=== PATIENT | male | born 1995 | race Hispanic/Latino ===

== ENCOUNTER 2021-05-01 11:20 | Inpatient (IN) | payer OTHER, SELFPAY ==
[2021-05-01 13:30] LABS: Absolute Lymphocytes (CBC) 0.4 K/uL (0.7-4.9); Basophils % 0.2 % (0-1.3); Hematocrit 44.8 % (39.6-49.0); Lymphocytes % 3.3 % (15.3-44.8); MPV 7.6 fL (7.6-11.3); RBC Red Blood Cell Count 5.23 M/uL (4.33-5.43)
[2021-05-01] MEDS ORDERED: dexAMETHasone 10 MG/ML VIAL ONE (14:18)
[2021-05-01] MEDS ORDERED: ALBUTEROL 2.5 MG/3 ML NEB SOL ONE (14:18)
[2021-05-01] MEDS ORDERED: MAGNESIUM SULFATE 1 gm IVPB 1 GM/100 ML BAG IV ONE (14:19)
--- NOTE | 2021-05-01 14:30 | RAD REPORT ---
EXAM DESCRIPTION: CT - Chest For Pe Angio - 05/01/2021 2:05 pm CLINICAL HISTORY: sob, elevated d-dimer COMPARISON: None. TECHNIQUE: Dynamically enhanced axial 3 mm thick images of the chest were obtained during administra tion of <100> mL Isovue 370 IV contrast. Coronal and oblique reconstruction images were generated and reviewed. Exam utilizes a protocol for optimal evaluation of pulmonary arterial tree. Maximum intensity projections 3D imaging was utilized All CT scans are performed using dose optimization technique as appropriate and may include automated exposure control or mA/KV adjustment according to patient size. FINDINGS: A pulmonary embolus is not seen. A thoracic aortic aneurysm is not noted. A pleural effusion is not seen. A pericardial effusion is not seen. Moderate ground-glass opacities within the left lung. Mild to moderate bilateral lower lobe consolida tions IMPRESSION: Negative for a pulmonary embolism. Moderate ground-glass opacities within the left lung. Mild to moderate bilateral lower lobe consolida tions . This could be seen with Covid or bacterial pneumonia
[2021-05-01 14:44] LABS: Platelet Estimate ADEQ; White Blood Cell Scan OK (OK)
[2021-05-01 14:45] LABS: Blood Morphology Comment NOT SEEN (NOT SEEN)
--- NOTE | 2021-05-01 15:16 | EDPHYS ---
Physician Documentation [facility] Name: Cordell Ware Age: 26 yrs Sex: Male : 1995 Arrival Date: 05/01/2021 Time: 11:23 Bed 24 Private MD: ED Physician Kolby Manzanares HPI: 05/01 12:14 This 26 yrs old Male presents to ER via Wheelchair with complaints of Covid jmm Complications. 12:14 Onset: The symptoms/episode began/occurred gradually, 10 day(s) ago. Modifying factors: jmm The symptoms are alleviated by nothing. the symptoms are aggravated by nothing. Associated signs and symptoms: Pertinent positives: cough. The patient has not experienced similar symptoms in the past. Patient mainly complaining non stop cough, diarrhea. Taking unknown prescribed medications. . Historical: - Allergies: 11:58 No Known Allergies; hb - Home Meds: 11:58 None [Active]; hb - PMHx: 11:58 None; hb - PSHx: 11:58 None; hb - Immunization history:: Adult Immunizations up to date. - Social history:: Smoking status: Patient denies any tobacco usage or history of. ROS: 12:14 Cardiovascular: Negative for chest pain, palpitations, and edema. jmm 12:14 Constitutional: Positive for fatigue. 12:14 Respiratory: Positive for cough. 12:14 All other systems are negative. Exam: 12:14 Constitutional: This is a well developed, well nourished patient who is awake, alert, jmm and in no acute distress. Head/Face: atraumatic. Eyes: EOMI, no conjunctival erythema appreciated ENT: Moist Mucus Membranes Neck: Trachea midline, Supple Chest/axilla: Normal chest wall appearance and motion. Cardiovascular: Regular rate and rhythm. No edema appreciated 12:14 Skin: General appearance color normal MS/ Extremity: Moves all extremities, no obvious deformities appreciated, no edema noted to the lower extremities Neuro: Awake and alert, normal gait Psych: Behavior is normal, Mood is normal, Patient is cooperative and pleasant 12:14 Respiratory: the patient does not display signs of respiratory distress, Respirations: normal, Breath sounds: decreased breath sounds, that are mild, are heard in the right posterior lower lobe. Vital Signs: 11:56 BP 116 / 68; Pulse 111; Resp 20; Temp 98.3(O); Pulse Ox 90% on R/A; Pain 6/10; hb 14:30 Pulse 91; Resp 20; Pulse Ox 96% ; kg 15:00 BP 112 / 73; Resp 22; Pulse Ox 93% on 3 lpm NC; kg 15:29 BP 116 / 76; Pulse 70; Resp 20; Pulse Ox 95% on 3 lpm NC; kg 16:00 BP 124 / 73; Pulse 81; Resp 20; Pulse Ox 96% on 3 lpm NC; kg 16:30 BP 124 / 75; Pulse 82; Resp 20; Pulse Ox 99% on 3 lpm NC; kg 17:00 BP 117 / 73; Pulse 90; Resp 20; Pulse Ox 98% on 3 lpm NC; kg 17:30 BP 119 / 72; Pulse 83; Resp 20; Pulse Ox 97% on 3 lpm NC; kg 18:00 BP 113 / 68; Pulse 73; Resp 20; Pulse Ox 97% on 3 lpm NC; kg MDM: 12:04 Patient medically screened. [facility] 15:13 Data reviewed: vital signs, nurses notes. Counseling: I had a detailed discussion with rm the patient and/or guardian regarding: the historical points, exam findings, and any diagnostic results supporting the discharge/admit diagnosis, radiology results, the need for further work-up and treatment in the hospital. ED course: I discussed the patient with Dr. Iraheta whom accepted the patient for admission. . 05/01 12:03 Order name: CBC with Diff; Complete Time: 14:57 [facility] 05/01 12:03 Order name: CMP; Complete Time: 06:09 [facility] 05/01 12:03 Order name: D-Dimer; Complete Time: 14:03 [facility] 05/01 13:35 Order name: CBC Smear Scan; Complete Time: 14:57 [facility] 05/01 14:48 Order name: CREATININE WHOLE BLOOD; Complete Time: 14:57 [facility] 05/01 15:50 Order name: C-Reactive Protein [facility] 05/01 15:50 Order name: Ferritin [facility] 05/01 19:08 Order name: C-Reactive Protein; Complete Time: 06:09 [facility] 05/01 19:08 Order name: Ferritin; Complete Time: 06:09 [facility] 05/02 05:43 Order name: CBC with Automated Diff; Complete Time: 06:09 [facility] 05/02 05:58 Order name: Basic Metabolic Panel; Complete Time: 06:09 [facility] 05/02 05:58 Order name: C-Reactive Protein; Complete Time: 06:09 [facility] 05/02 05:58 Order name: Magnesium; Complete Time: 06:09 [facility] 05/02 05:58 Order name: Ferritin; Complete Time: 06:09 [facility] 05/01 12:03 Order name: Saline Lock; Complete Time: 13:55 [facility] 05/01 13:39 Order name: CT Chest For PE Angio; Complete Time: 14:35 [facility] 05/01 15:47 Order name: CONS Physician Consult [facility] 05/02 10:34 Order name: Phosphorus; Complete Time: 06:09 [facility] 05/03 05:31 Order name: Basic Metabolic Panel; Complete Time: 06:09 [facility] 05/03 05:31 Order name: C-Reactive Protein; Complete Time: 06:09 [facility] 05/03 05:31 Order name: Magnesium; Complete Time: 06:09 [facility] 05/03 05:31 Order name: Ferritin; Complete Time: 06:09 EDMS Administered Medications: 14:15 Drug: Decadron - Dexamethasone 10 mg Route: IVP; Site: right antecubital; ld1 18:20 Follow up: Response: No adverse reaction kg 14:15 Drug: Albuterol 2.5 mg Route: Inhalation; ld1 14:24 Drug: Magnesium Sulfate 1 grams Route: IVPB; Infused Over: 1 hrs; Site: right ld1 antecubital; 15:00 Follow up: IV Status: Completed infusion; IV Intake: 100ml kg 18:17 Follow up: Response: No adverse reaction kg Disposition: 05/04 06:59 Co-signature as Attending Physician, Kolby Manzanares MD I agree with the assessment and surya plan of care. Disposition Summary: 05/01/21 15:15 Hospitalization Ordered Hospitalization Status: Observation jm Provider: Vidal Iraheta Condition: Stable jmm Problem: new jmm Symptoms: are unchanged [facility] Bed/Room Type: Standard [facility] Location: Intensive Care Unit(05/03/21 14:53) ja1 Room Assignment: 6-(05/03/21 14:53) [facility] Diagnosis - Coronavirus infection, unspecified jmm - Acute respiratory distress m Forms: - Medication Reconciliation Form jmm - SBAR form jmm Signatures: Dispatcher [employer] EDKolby Lemon MD MD cha Mickail, Joel, PA PA [facility] Miesha Paula, RN RN Neelam Iyer RN RN Modesto Correia RN RN ja1 Vicenta Crockett RN RN ld1 Radha Espinosa RN kg Corrections: (The following items were deleted from the chart) 05/01 11:58 11:58 PMHx: Unable to Obtain; hb 18: 15:15 Telemetry/MedSurg (observation) [facility] : 15:15 [facility] 05/03 14:53 05/01 18:22 [place] [id number] 05/03 14:53 05/01 18:22 [place] [id number]
--- NOTE | 2021-05-01 15:16 | ER ---
Nurse's Notes [facility] Name: Cordell Ware Age: 26 yrs Sex: Male : 1995 Arrival Date: 05/01/2021 Time: 11:23 Bed 24 Private MD: Diagnosis: Coronavirus infection, unspecified;Acute respiratory distress Presentation: 05/01 11:56 Chief complaint: Worsening SOB, cough, congestion, nausea, fever, and chills x 10 days. hb COVID +. Coronavirus screen: Client presents with at least one sign or symptom that may indicate coronavirus-19. Standard/surgical mask placed on the client. Provider contacted for isolation considerations. Ebola Screen: No symptoms or risks identified at this time. Risk Assessment: Do you want to hurt yourself or someone else? Patient reports no desire to harm self or others. Onset of symptoms was April 21, 2021. 11:56 Method Of Arrival: Wheelchair hb 11:56 Acuity: TAL 2 hb 13:00 Initial Sepsis Screen: Does the patient meet any 2 criteria? No. Patient's initial kg sepsis screen is negative. Does the patient have a suspected source of infection? No. Patient's initial sepsis screen is negative. Triage Assessment: 13:00 General: Appears in no apparent distress. Behavior is calm, cooperative, appropriate kg for age, quiet. Pain: Denies pain. Historical: - Allergies: 11:58 No Known Allergies; hb - Home Meds: 11:58 None [Active]; hb - PMHx: 11:58 None; hb - PSHx: 11:58 None; hb - Immunization history:: Adult Immunizations up to date. - Social history:: Smoking status: Patient denies any tobacco usage or history of. Screenin:00 Abuse screen: Denies threats or abuse. Denies injuries from another. Nutritional kg screening: No deficits noted. Tuberculosis screening: No symptoms or risk factors identified. Fall Risk None identified. No fall in past 12 months (0 pts). No secondary diagnosis (0 pts). IV access (20 points). Ambulatory Aid- None/Bed Rest/Nurse Assist (0 pts). Gait- Normal/Bed Rest/Wheelchair (0 pts) Mental Status- Oriented to own ability (0 pts). Total Curran Fall Scale indicates No Risk (0-24 pts). Assessment: 14:30 General: Appears uncomfortable, Behavior is appropriate for age, anxious, quiet. Pain: kg Denies pain. Neuro: No deficits noted. Level of Consciousness is awake, alert, obeys commands, Oriented to person, place, time, situation, Appropriate for age. Cardiovascular: No deficits noted. Heart tones S1 S2. Respiratory: No deficits noted. Reports shortness of breath at rest on exertion cough that is productive, since 10 days ago Respiratory: Breath sounds are diminished bilaterally. GI: No deficits noted. : No deficits noted. EENT: No deficits noted. Derm: No deficits noted. Musculoskeletal: No deficits noted. 17:25 Reassessment: called and gave her an update on pt status. Will call her back when kg patient has room. [place]. [phone]. Vital Signs: 11:56 BP 116 / 68; Pulse 111; Resp 20; Temp 98.3(O); Pulse Ox 90% on R/A; Pain 6/10; hb 14:30 Pulse 91; Resp 20; Pulse Ox 96% ; kg 15:00 BP 112 / 73; Resp 22; Pulse Ox 93% on 3 lpm NC; kg 15:29 BP 116 / 76; Pulse 70; Resp 20; Pulse Ox 95% on 3 lpm NC; kg 16:00 BP 124 / 73; Pulse 81; Resp 20; Pulse Ox 96% on 3 lpm NC; kg 16:30 BP 124 / 75; Pulse 82; Resp 20; Pulse Ox 99% on 3 lpm NC; kg 17:00 BP 117 / 73; Pulse 90; Resp 20; Pulse Ox 98% on 3 lpm NC; kg 17:30 BP 119 / 72; Pulse 83; Resp 20; Pulse Ox 97% on 3 lpm NC; kg 18:00 BP 113 / 68; Pulse 73; Resp 20; Pulse Ox 97% on 3 lpm NC; kg ED Course: 11:23 Patient arrived in ED. rg4 11:58 Triage completed. hb 11:58 Arm band placed on. hb 11:59 Cooper Salter PA is PHCP. jmm 11:59 Kolby Manzanares MD is Attending Physician. jmm 12:30 Radha Espinosa, SUPA is Primary Nurse. kg 12:40 Inserted saline lock: 20 gauge in right antecubital area, using aseptic technique. kg 13:01 Patient has correct armband on for positive identification. Bed in low position. Call kg light in reach. Side rails up X2. 14:05 CT Chest For PE Angio In Process Unspecified. EDMS 15:15 Vidal Iraheta MD is Hospitalizing Provider. [facility] Administered Medications: 14:15 Drug: Decadron - Dexamethasone 10 mg Route: IVP; Site: right antecubital; ld1 18:20 Follow up: Response: No adverse reaction kg 14:15 Drug: Albuterol 2.5 mg Route: Inhalation; ld1 14:24 Drug: Magnesium Sulfate 1 grams Route: IVPB; Infused Over: 1 hrs; Site: right ld1 antecubital; 15:00 Follow up: IV Status: Completed infusion; IV Intake: 100ml kg 18:17 Follow up: Response: No adverse reaction kg Intake: 15:00 IV: 100ml; Total: 100ml. kg Outcome: 15:15 Decision to Hospitalize by Provider. [facility] 05/03 16:32 Patient left the ED. eb Signatures: Dispatcher [employer] EDMS Cooper Salter PA PA [facility] Neelam Iyer RN RN Dania Curry rg4 Irene Sweeney Vicenta Crockett, SUPA RN ld1 Radha Espinosa RN RN kg Corrections: (The following items were deleted from the chart) 07 11:58 11:58 PMHx: Unable to Obtain; hb hb 17:32 11:56 Chief complaint: Worsening SOB, cough, congestion, nausea, fever, and shills x 10 hb days. COVID + hb 18:51 16:00 BP 124 / 73; Pulse 81bpm; Resp 20bpm; Pulse Ox 96%; kg kg 18:51 16:30 BP 124 / 75; Pulse 82bpm; Resp 20bpm; Pulse Ox 99%; kg kg 18:51 17:00 BP 117 / 73; Pulse 90bpm; Resp 20bpm; Pulse Ox 98% RA; kg kg 18:51 17:30 BP 119 / 72; Pulse 83bpm; Resp 20bpm; Pulse Ox 97% RA; kg kg 18:51 18:00 BP 113 / 68; Pulse 73bpm; Resp 20bpm; Pulse Ox 97% RA; kg kg
--- NOTE | 2021-05-01 15:48 | P.HP ---
Certification for Inpatient Patient admitted to: Observation With expected LOS: <2 Midnights Practitioner: I am a practitioner with admitting privileges, knowledge of patient current condition, hospital course, and medical plan of care. Services: Services provided to patient in accordance with Admission requirements found in Title 42 Section 412.3 of the Code of Federal Regulations Patient History Date of Service: 05/01/21 Reason for admission: hypoxia, COVID-19 pneumonia History of Present Illness: 26-year-old male, no significant past medical history presents to the ER due to progressively worsening shortness of breath, dyspnea on exertion, and bad coughing episodes. Denies nausea/vomiting, reports of mild diarrhea. No abdominal pain, no chest pain or pressure. No recent sick contacts that he is aware of. In the ER he was found to be Covid positive, CT consistent with Covid pneumonia. Yes I five second recording 3 L nasal cannula to maintain SPO2 greater than 90%. Elevated D dimer, CTA negative for PE. Allergies No Known Allergies Allergy (Unverified 05/01/21 19:07) Home Medications: NK [No Home Meds] 05/01/21 - Past Medical/Surgical History Past Medical History: Patient denies medical history Past Surgical History: Patient denies surgical history - Family History Family History: Reviewed- Non-Contributory (denies family history) - Social History Smoking Status: Never smoker Alcohol use: No Place of Residence: Home Review of Systems 10-point ROS is otherwise unremarkable Physical Examination - Studies Laboratory Data (last 24 hrs) 05/01/21 12:52: WBC 11.80 H, Hgb 15.3, Hct 44.8, Plt Count 356 Assessment and Plan - Advance Directives Does patient have a Living Will: No Does patient have a Durable POA for Healthcare: No Physician Review Additional Text: Physical exam vitals reviewed. General: NAD, AAOx3 HEENT: normal conjunctiva, sclera anicteric CV: regular rate and rhythm, no murmur Pulmonary: bilateral crackles, diminished bases bilaterally. Non-labored respirations on 3 L nasal cannula. Abd: soft, nontender, nondistended Integumentary: no rash, no lesions Neuro: normal affect, normal speech, str 5/5 all extremities MSK: no joint tenderness/swelling Problem list Acute hypoxemic respiratory failure secondary to COVID-19 pneumonia Elevated D dimer Cough Treatment per Covid protocol, steroids, vitamin supplementation, cough medication Pulmonology consulted Wean oxygen as tolerated lovenox for DVT prophylaxis pt does not appear toxic seems to get more significantly short of breath due to coughing episodes Dispo: anticipate dc home tomorrow, will likely need home O2 Time Spent Managing Pts Care (In Minutes): 65
[2021-05-01 19:07] LABS: Albumin 3.3 g/dL (3.4-5.0); Bilirubin Total 0.7 mg/dL (0.2-1.0); C-Reactive Protein 73.3 mg/L (<3.00); Ferritin 1484.2 ng/mL (26-388); Potassium 4.6 mmol/L (3.5-5.1); Protein, Total 8.4 g/dL (6.4-8.2)
[2021-05-01] MEDS: THIAMINE 200 MG/2 ML INJ IVP SCH (22:10)
[2021-05-01] MEDS ORDERED: BENZONATATE 100 MG CAP PO PRN (22:10)
[2021-05-01] MEDS: ASCORBIC ACID 500 MG TABLET PO SCH (22:10)
[2021-05-01] MEDS: FAMOTIDINE 20 MG TAB PO SCH (22:10)
[2021-05-01 22:27] VITALS: BMI 23.7
[2021-05-01] MEDS: METHYLPREDNISOLONE 40 MG INJ IV SCH (22:30)
[2021-05-01] MEDS ORDERED: VITAMIN D 1000 UNIT TAB ONE (23:25)
[2021-05-01] MEDS ORDERED: THIAMINE 200 MG/2 ML INJ ONE (23:25)
[2021-05-01] MEDS ORDERED: ASCORBIC ACID 500 MG TABLET ONE (23:26)
[2021-05-01] MEDS ORDERED: FAMOTIDINE 20 MG TAB ONE (23:26)
[2021-05-01] MEDS ORDERED: ENOXAPARIN 40 MG/0.4 ML SQ ONE (23:26)
[2021-05-01] MEDS ORDERED: METHYLPREDNISOLONE 40 MG INJ ONE (23:26)
[2021-05-02 05:26] LABS: Absolute Lymphocytes (CBC) 0.5 K/uL (0.7-4.9); Basophils % 0.3 % (0-1.3); Hematocrit 42.3 % (39.6-49.0); Lymphocytes % 5.8 % (15.3-44.8); MPV 7.4 fL (7.6-11.3); RBC Red Blood Cell Count 4.96 M/uL (4.33-5.43)
[2021-05-02 05:57] LABS: BUN Blood Urea Nitrogen 32 mg/dL (7-18); Bicarbonate 29 mmol/L (21-32); Ferritin 1262.1 ng/mL (26-388); Glucose Level 212 mg/dL (74-106); Magnesium 2.8 mg/dL (1.8-2.4); Sodium Level 138 mmol/L (136-145)
[2021-05-02] MEDS: METHYLPREDNISOLONE 40 MG INJ IV SCH ×3 (06:30→21:44)
[2021-05-02] MEDS ORDERED: METHYLPREDNISOLONE 40 MG INJ ONE ×2 (06:42→21:33)
[2021-05-02] MEDS: ENOXAPARIN 40 MG/0.4 ML SQ SCH (09:00)
[2021-05-02] MEDS: FAMOTIDINE 20 MG TAB PO SCH ×2 (09:00→21:00)
[2021-05-02] MEDS: VITAMIN D 1000 UNIT TAB PO SCH (09:00)
[2021-05-02] MEDS: ASCORBIC ACID 500 MG TABLET PO SCH ×4 (09:00→21:00)
[2021-05-02] MEDS: THIAMINE 200 MG/2 ML INJ IVP SCH ×2 (09:00→21:00)
[2021-05-02] MEDS ORDERED: THIAMINE 200 MG/2 ML INJ ONE ×2 (09:12→21:33)
[2021-05-02] MEDS ORDERED: VITAMIN D 1000 UNIT TAB ONE (09:13)
[2021-05-02] MEDS ORDERED: ASCORBIC ACID 500 MG TABLET ONE ×3 (09:13→21:33)
[2021-05-02] MEDS ORDERED: FAMOTIDINE 20 MG TAB ONE ×2 (09:13→21:34)
[2021-05-02] MEDS ORDERED: ENOXAPARIN 40 MG/0.4 ML SQ ONE (09:14)
--- NOTE | 2021-05-02 16:03 | P.PN ---
Subjective Date of Service: 05/02/21 Chief Complaint: hypoxia, COVID-19 pneumonia Subjective: Improving (slight improvement, has not gotten out of bed yet, SOB worse when coughing. coughing less frequent) Review of Systems 10-point ROS is otherwise unremarkable Physical Examination - Vital Signs Temperature: 97.7 F Blood Pressure: 114/74 Pulse: 80 Respirations: 20 Pulse Ox (%): 92 - Studies Laboratory Data (last 24 hrs) 05/01/21 12:52: Sodium 138, Potassium 4.6, BUN 35 H, Creatinine 1.02, Glucose 200 H, Total Bilirubin 0.7, AST 147 H, ALT 185 H, Alkaline Phosphatase 73 Assessment & Plan Physician Review Additional Text: Physical exam General: mild distress, AAOx3 HEENT: normal conjunctiva, sclera anicteric CV: regular rate and rhythm, no murmur Pulmonary: bilateral crackles, diminished bases bilaterally. tachypneic, on 2-3L NC Abd: soft, nontender, nondistended Integumentary: no rash, no lesions Neuro: normal affect, normal speech, str 5/5 all extremities Problem list Acute hypoxemic respiratory failure secondary to COVID-19 pneumonia Elevated D dimer Cough Treatment per Covid protocol, steroids, vitamin supplementation, cough medicatio n Pulmonology consulted Wean oxygen as tolerated lovenox for DVT prophylaxis seems to get more significantly short of breath due to coughing episodes tessalon perles seem to help patient has improved somewhat but still does not look well enough to be discharged home today Dispo: anticipate dc home tomorrow, with home O2 Time Spent Managing Pts Care (In Minutes): 35
[2021-05-02] MEDS ORDERED: METHYLPREDNISOLONE 125 MG INJ ONE (17:04)
[2021-05-03 05:31] LABS: BUN Blood Urea Nitrogen 35 mg/dL (7-18); Bicarbonate 31 mmol/L (21-32); Ferritin 1418.6 ng/mL (26-388); Glucose Level 220 mg/dL (74-106); Magnesium 2.7 mg/dL (1.8-2.4); Potassium 4.7 mmol/L (3.5-5.1); Sodium Level 137 mmol/L (136-145)
[2021-05-03] MEDS: METHYLPREDNISOLONE 40 MG INJ IV SCH ×3 (06:30→21:33)
[2021-05-03] MEDS ORDERED: METHYLPREDNISOLONE 40 MG INJ ONE (06:48)
[2021-05-03] MEDS: ENOXAPARIN 40 MG/0.4 ML SQ SCH (09:00)
[2021-05-03] MEDS: ASCORBIC ACID 500 MG TABLET PO SCH ×4 (09:00→20:23)
[2021-05-03] MEDS: FAMOTIDINE 20 MG TAB PO SCH ×2 (09:00→20:23)
[2021-05-03] MEDS: THIAMINE 200 MG/2 ML INJ IVP SCH ×2 (09:00→20:23)
[2021-05-03] MEDS: VITAMIN D 1000 UNIT TAB PO SCH (09:00)
[2021-05-03] MEDS ORDERED: BARICITINIB 2 MG TABLET PO SCH (10:30)
[2021-05-03] MEDS ORDERED: THIAMINE HCL 100 MG TABLET ONE (10:35)
[2021-05-03] MEDS ORDERED: METHYLPREDNISOLONE 125 MG INJ ONE (10:35)
[2021-05-03] MEDS ORDERED: ASCORBIC ACID 500 MG TABLET ONE ×2 (10:36→14:03)
[2021-05-03] MEDS ORDERED: VITAMIN D 1000 UNIT TAB ONE (10:36)
[2021-05-03] MEDS ORDERED: FAMOTIDINE 20 MG TAB ONE (10:36)
[2021-05-03] MEDS ORDERED: ENOXAPARIN 40 MG/0.4 ML SQ ONE (10:36)
--- NOTE | 2021-05-03 11:55 | P.PN ---
Subjective Date of Service: 05/03/21 Chief Complaint: hypoxia, COVID-19 pneumonia Subjective: No new changes (feeling ok, seems to do ok at rest, but SpO2 drops to 80%, tachypneic and tachycardic to 130s after just standing at bedside for 10 seconds. Frequency of cough is improving) Review of Systems 10-point ROS is otherwise unremarkable Physical Examination - Vital Signs Temperature: 97.9 F Blood Pressure: 101/68 Pulse: 52 Respirations: 23 Pulse Ox (%): 94 Assessment & Plan Physician Review Additional Text: Physical exam General: mild distress, AAOx3 HEENT: normal conjunctiva, sclera anicteric CV: regular rate and rhythm, no murmur Pulmonary: bilateral crackles, diminished bases bilaterally. tachypneic, on 2-3L NC Abd: soft, nontender, nondistended Integumentary: no rash, no lesions Neuro: normal affect, normal speech, str 5/5 all extremities Problem list Acute hypoxemic respiratory failure secondary to COVID-19 pneumonia Elevated D dimer Cough Treatment per Covid protocol, steroids, vitamin supplementation, cough medication Pulmonology consulted, recommended baricitinib Wean oxygen as tolerated lovenox for DVT prophylaxis tessallyla young seem to help I had patient stand up at bedside, within 5-10 seconds, he was dyspneic, hypoxic to 78%, tachycardic to 130s Took 5 minutes for tachypnea, tachycardia, and hypoxia to improve Dispo: anticipate dc home in 24-48hrs with home O2 Time Spent Managing Pts Care (In Minutes): 40
[2021-05-03] MEDS ORDERED: IVERMECTIN 3 MG TABLET PO ONE (15:25)
--- NOTE | 2021-05-03 15:28 | P.CNS ---
Date of Consult: 05/03/21 Reason for Consult: COVID penumonia Chief Complaint: hypoxia, COVID-19 pneumonia History of Present Illness: Age 26 AW COVID penumonia/ Ct scan consistent/ c/o cough/ midl diarhea Allergies No Known Allergies Allergy (Unverified 05/01/21 19:07) Home Medications: NK [No Home Meds] 05/01/21 - Past Medical/Surgical History Diabetic: No - Social History Alcohol use: No CD- Drugs: No Caffeine use: No Place of Residence: Home Physical Examination Temp Pulse Resp BP Pulse Ox 97.9 F 60 28 H 114/66 94 05/03/21 11:55 05/03/21 12:00 05/03/21 12:00 05/03/21 12:00 05/03/21 12:00 - Problems (1) COVID Current Visit: Yes Status: Acute Plan: pt is 26 AW COVID penumonia. on nasal can O2/ AbnormalLFT's/ Add ivermectin/ Cw present TX
[2021-05-04] MEDS: METHYLPREDNISOLONE 40 MG INJ IV SCH ×3 (05:52→23:02)
[2021-05-04 06:08] LABS: ALT/SGPT 292 U/L (12-78); AST/SGOT 75 U/L (15-37); Albumin 3.2 g/dL (3.4-5.0); Alkaline Phosphatase 72 U/L (45-117); BUN Blood Urea Nitrogen 35 mg/dL (7-18); Bicarbonate 30 mmol/L (21-32); Bilirubin Total 1.3 mg/dL (0.2-1.0); Glucose Level 204 mg/dL (74-106); Potassium 4.4 mmol/L (3.5-5.1); Protein, Total 7.9 g/dL (6.4-8.2); Sodium Level 138 mmol/L (136-145)
[2021-05-04 06:25] LABS: Ferritin 1379.4 ng/mL (26-388)
--- NOTE | 2021-05-04 07:31 | RAD REPORT ---
EXAM DESCRIPTION: RAD - Chest Single View - 05/04/2021 6:49 am CLINICAL HISTORY: hypoxia, COVID COMPARISON: No comparisons FINDINGS: Mild to moderate bilateral patchy airspace disease. The heart size is within normal limits .No acute osseous abnormality. No significant pleural effusions or pneumothorax. IMPRESSION: Mild to moderate bilateral patchy airspace disease concerning for multifocal pneumonia, including Covid-19.
--- NOTE | 2021-05-04 08:18 | P.PN ---
Subjective Date of Service: 05/04/21 Chief Complaint: hypoxia, COVID-19 pneumonia Subjective: Worsening (more hypoxic, needing 4L NC now, dyspneic and tachycardic with standing, hasnt ambulated) Review of Systems 10-point ROS is otherwise unremarkable Physical Examination - Vital Signs Temperature: 97.3 F Blood Pressure: 106/70 Pulse: 75 Respirations: 20 Pulse Ox (%): 93 Assessment & Plan Physician Review Additional Text: Physical exam General: NAD, stoic HEENT: normal conjunctiva, sclera anicteric CV: regular rate and rhythm, no murmur Pulmonary: diminished bases bilaterally. slightly labored on 4L NC at rest Abd: soft, nontender, nondistended Integumentary: no rash, no lesions Neuro: str 5/5 all extremities Problem list Acute hypoxemic respiratory failure secondary to COVID-19 pneumonia Elevated D dimer Cough Treatment per Covid protocol, steroids, vitamin supplementation, cough medication Pulmonology consulted, recommended baricitinib, not candidate per pharm Wean oxygen as tolerated lovenox for DVT prophylaxis jessenia young have helped his cough patient desaturates to 80% with just standing at bedside with significant tachycardia to 130s, needing more O2 supplementation continue to monitor through today, does not appear stable enough for discharge today at this time will reevaluate in the afternoon Dispo: anticipate dc home in ~24hrs with home O2 Time Spent Managing Pts Care (In Minutes): 35
[2021-05-04] MEDS: ENOXAPARIN 40 MG/0.4 ML SQ SCH (08:29)
[2021-05-04] MEDS: FAMOTIDINE 20 MG TAB PO SCH ×2 (08:29→20:50)
[2021-05-04] MEDS: ASCORBIC ACID 500 MG TABLET PO SCH ×4 (08:29→20:50)
[2021-05-04] MEDS: THIAMINE 200 MG/2 ML INJ IVP SCH ×2 (08:29→20:50)
[2021-05-04] MEDS: VITAMIN D 1000 UNIT TAB PO SCH (08:29)
--- NOTE | 2021-05-04 15:10 | P.PN ---
Subjective Date of Service: 05/04/21 Chief Complaint: hypoxia, COVID-19 pneumonia Subjective: Improving (Better on NC O2) Physical Examination - Vital Signs Temperature: 97.2 F Blood Pressure: 113/73 Pulse: 95 Respirations: 28 Pulse Ox (%): 90 Assessment & Plan - Problems (Diagnosis) (1) COVID Current Visit: Yes Status: Acute Plan: Improving/ poss DC hoAMme/ Abnormal LFT. Looking well/ LAbs rev
[2021-05-05 05:39] VITALS: BP 105/69; TEMP 96.9
[2021-05-05] MEDS: METHYLPREDNISOLONE 40 MG INJ IV SCH (06:20)
[2021-05-05 06:25] LABS: Absolute Lymphocytes (CBC) 0.6 K/uL (0.7-4.9); Basophils % 0.1 % (0-1.3); Hematocrit 43.3 % (39.6-49.0); Lymphocytes % 6.1 % (15.3-44.8); MPV 6.9 fL (7.6-11.3); RBC Red Blood Cell Count 5.09 M/uL (4.33-5.43)
[2021-05-05 06:31] LABS: Albumin 3.1 g/dL (3.4-5.0); BUN Blood Urea Nitrogen 30 mg/dL (7-18); Bicarbonate 28 mmol/L (21-32); Glucose Level 187 mg/dL (74-106); Magnesium 2.5 mg/dL (1.8-2.4); Potassium 4.3 mmol/L (3.5-5.1); Sodium Level 133 mmol/L (136-145)
[2021-05-05 06:47] LABS: ALT/SGPT 235 U/L (12-78); AST/SGOT 48 U/L (15-37); Alkaline Phosphatase 67 U/L (45-117); Bilirubin Total 1.2 mg/dL (0.2-1.0); C-Reactive Protein 8.61 mg/L (<3.00); Ferritin 1319.7 ng/mL (26-388); Protein, Total 7.4 g/dL (6.4-8.2)
[2021-05-05] MEDS: ENOXAPARIN 40 MG/0.4 ML SQ SCH (08:20)
[2021-05-05] MEDS: FAMOTIDINE 20 MG TAB PO SCH (08:20)
[2021-05-05] MEDS: THIAMINE 200 MG/2 ML INJ IVP SCH (08:20)
[2021-05-05] MEDS: ASCORBIC ACID 500 MG TABLET PO SCH (08:21)
[2021-05-05] MEDS: VITAMIN D 1000 UNIT TAB PO SCH (08:21)
[2021-05-05 09:35] LABS: Blood Morphology Comment NOT SEEN (NOT SEEN); Platelet Estimate INCR; White Blood Cell Scan OK (OK)
--- NOTE | 2021-05-05 10:28 | P.PN ---
Subjective Date of Service: 05/05/21 Chief Complaint: hypoxia, COVID-19 pneumonia Subjective: Improving (Doign better on NC O2) Review of Systems Respiratory: Shortness of Breath Physical Examination - Vital Signs Temperature: 96.9 F Blood Pressure: 105/69 Pulse: 61 Respirations: 15 Pulse Ox (%): 91 - Physical Exam General: Alert, Cooperative Assessment & Plan - Problems (Diagnosis) (1) COVID Current Visit: Yes Status: Acute Plan: REsp failure/doing well/ Dc home. pred 20 BID and asprin/ O2 ordered F/u with me 1 wk
[2021-05-05 11:02] VITALS: O2SAT 93
--- NOTE | 2021-05-05 13:11 | P.DS ---
Admission Date: 05/01/21 Discharge Date: 05/05/21 Disposition: ROUTINE DISCHARGE Discharge Condition: FAIR Reason for Admission: hypoxia, COVID-19 pneumonia Consultations: PulmonologyDr. Rivera Procedures: CXR (05/04): FINDINGS: Mild to moderate bilateral patchy airspace disease. The heart size is within normal limits.No acute osseous abnormality. No significant pleural effusions or pneumothorax. IMPRESSION: Mild to moderate bilateral patchy airspace disease concerning for multifocal pneumonia, including Covid-19. CTA Chest (05/01): FINDINGS: A pulmonary embolus is not seen. A thoracic aortic aneurysm is not noted. A pleural effusion is not seen. A pericardial effusion is not seen. Moderate ground-glass opacities within the left lung. Mild to moderate bilateral lower lobe consolidations IMPRESSION: Negative for a pulmonary embolism. Moderate ground-glass opacities within the left lung. Mild to moderate bilateral lower lobe consolidations . This could be seen with Covid or bacterial pneumonia Problem list Acute hypoxemic respiratory failure secondary to COVID-19 pneumonia Brief History of Present Illness: 26-year-old male, no significant past medical history presents to the ER due to progressively worsening shortness of breath, dyspnea on exertion, and bad coughing episodes. Denies nausea/vomiting, reports of mild diarrhea. No abdominal pain, no chest pain or pressure. No recent sick contacts that he is aware of. In the ER he was found to be Covid positive, CT consistent with Covid pneumonia. Yes I five second recording 3 L nasal cannula to maintain SPO2 greater than 90%. Elevated D dimer, CTA negative for PE. Hospital Course: Patient was treated per our Covid protocol steroids, vitamin supplementation and oxygen supplementation. He had gradual improvement with the symptoms. Although he was tolerating 3-4 L nasal cannula at rest, he would quickly desaturate to 80% SPO2 with tachycardia of heart rate: 130s within seconds of standing. His cough significantly improved with treatment as well as initiation of Tessalon Perles. All of his symptoms gradually improved. On day of discharge he was breathing comfortably on 2 L nasal cannula unable to ambulate short distances. He would desaturate, however would bounce back up quickly. He is discharged with home O2, prednisone, Tessalon Perles, and aspirin. To follow-up with Dr. Rivera in 1 week. Vital Signs/Physical Exam: Physical exam General: NAD HEENT: normal conjunctiva, sclera anicteric CV: regular rate and rhythm, no murmur Pulmonary: diminished bases bilaterally. nonlabored on 2L NC at rest Abd: soft, nontender, nondistended Integumentary: no rash, no lesions Neuro: str 5/5 all extremities Temp Pulse Resp BP Pulse Ox 96.9 F 61 15 105/69 91 05/05/21 10:27 05/05/21 10:27 05/05/21 10:27 05/05/21 10:27 05/05/21 10:27 Laboratory Data at Discharge: WBC 10.60 K/uL (4.3-10.9) 05/05/21 05:45 Hgb 15.1 g/dL (13.6-17.9) 05/05/21 05:45 Hct 43.3 % (39.6-49.0) 05/05/21 05:45 Plt Count 540 K/uL (152-406) H D 05/05/21 05:45 Sodium 133 mmol/L (136-145) L 05/05/21 05:45 Potassium 4.3 mmol/L (3.5-5.1) 05/05/21 05:45 BUN 30 mg/dL (7-18) H 05/05/21 05:45 Creatinine 0.80 mg/dL (0.55-1.3) 05/05/21 05:45 Glucose 187 mg/dL (74-106) H 05/05/21 05:45 Phosphorus 3.5 mg/dL (2.5-4.9) 05/02/21 05:10 Magnesium 2.5 mg/dL (1.8-2.4) H 05/05/21 05:45 Total Bilirubin 1.2 mg/dL (0.2-1.0) H 05/05/21 05:45 AST 48 U/L (15-37) H 05/05/21 05:45 ALT 235 U/L (12-78) H 05/05/21 05:45 Alkaline Phosphatase 67 U/L (45-117) 05/05/21 05:45 Home Medications: Aspirin 81 mg PO DAILY 30 Days #30 tab.chew 05/05/21 Benzonatate [Tessalon Perle] 100 mg PO TID PRN 5 Days #15 cap 05/05/21 predniSONE [Deltasone] 20 mg PO BID #20 tab 05/05/21 New Medications: Aspirin 81 mg PO DAILY 30 Days #30 tab.chew predniSONE [Deltasone] 20 mg PO BID #20 tab Benzonatate [Tessalon Perle] 100 mg PO TID PRN 5 Days #15 cap PRN Reason: Cough Followup: Matheus Rivera MD [ACTIVE - CAN ADMIT] - 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
== END 2021-05-05 12:15 | disposition home or self-care (01) | DRG 177 ==
LOC: ER 11:20 → ERHOLD 16:54 → OBSVTOIN 17:01 → 3RD-ICU 05-03 15:59
PROVIDERS: ADMIT Hospitalist; ATTEND Hospitalist
DX: U07.1 COVID-19 (principal); J12.82 Pneumonia due to coronavirus disease 2019; J96.01 Acute respiratory failure with hypoxia
CPT/HCPCS: 36415; 71045; 71275; 80048; 80053; 82565; 82728; 83735; 84100; 85025; 85379; 86140; 94010; 94760; 96365; 96375; 99284; G0378; J1100; J1650; J2920; J2930; J3411; J3475; Q9967